=== PATIENT | male | born 1945 | race Caucasian/White ===

== ENCOUNTER 2024-02-27 11:13 | Inpatient (IN) | payer MEDICARE, BC ==
[~2024-02-27] VITALS: Ht 180.3 cm; Wt 99.8 kg
[2024-02-27] MEDS ORDERED: Albuterol 2.5 MG/3 ML VIAL INH SCH ×2 (11:40→14:25)
[2024-02-27] MEDS ORDERED: Ipratropium/Albuterol SulF 2.5-0.5MG/3 ML Amp INH ONE (11:40)
[2024-02-27 11:59] LABS: Base Excess Venous 4.1 mmol/L; Bicarbonate Venous 26.7 mmol/L (24.0-30.0); PCO2 Venous 46.5 mmHg (38-42)
[2024-02-27] MEDS ORDERED: TERA5 PO (12:03)
[2024-02-27] MEDS ORDERED: EPITOL200 M2 PO (12:03)
[2024-02-27 12:10] LABS: BASOPHILS ABSOLUTE AUTO 0.01 K/mm3 (0.00-0.23); BASOPHILS PERCENT AUTO 0 % (0-2); EOSINOPHILS PERCENT AUTO 0 % (0-6); Hemoglobin 13.7 g/dL (13.5-17.5); IMMATURE GRAN ABSOLUTE AUTO 0.03 K/mm3 (0.00-0.10); IMMATURE GRAN PERCENT AUTO 0 % (0-1); LYMPHOCYTES ABSOLUTE AUTO 0.88 K/mm3 (0.84-5.20); LYMPHOCYTES PERCENT AUTO 10 % (21-46); MONOCYTES ABSOLUTE AUTO 0.97 K/mm3 (0.16-1.47); MONOCYTES PERCENT AUTO 11 % (4-13); Mean Corpuscular HGB 31.1 pg (26.0-34.0); Mean Corpuscular HGB Conc 34.3 g/dL (31.5-36.5); Mean Corpuscular Volume 91 fL (80-100); NEUTROPHILS ABSOLUTE AUTO 7.32 K/mm3 (1.96-9.15); NEUTROPHILS PERCENT AUTO 80 % (41-73); Platelet Count 115 K/mm3 (150-400); RDW Coefficient Variation 12.6 % (11.7-14.2); RDW Standard Deviation 41.9 fL (35.1-46.3); Red Blood Cell Count 4.41 M/mm3 (4.30-5.90); White Blood Cell Count 9.21 K/mm3 (4.00-11.30)
[2024-02-27 12:34] LABS: Albumin, Blood 3.4 g/dL (3.4-5.0); Albumin/Globulin Ratio 1.1 (0.8-1.8); Bilirubin, Total 0.6 mg/dL (0.1-1.0); Bun/Creatinine Ratio 23.5 (12.0-20.0); Calcium, Blood 8.5 mg/dL (8.5-10.1); Creatinine, Blood 1.19 mg/dL (0.60-1.20); Globulin, Blood 3.1 g/dL (2.2-4.0); Magnesium, Blood 2.4 mg/dL (1.6-2.4); Potassium, Blood 4.4 mmol/L (3.5-5.5); Total Protein, Blood 6.5 g/dL (6.4-8.2)
[2024-02-27] MEDS ORDERED: MethylPREDNISolone Sod Succ 125 MG Vial IV ONE (14:25)
[2024-02-27] MEDS ORDERED: Ondansetron 4 MG TAB PO PRN (14:35)
[2024-02-27] MEDS ORDERED: CefTRIAXone Sodium 2,000 MG in NS 100 ML IV ONE (14:40)
[2024-02-27] MEDS ORDERED: Azithromycin 500 MG in NS 250 ML IV ONE (14:40)
[2024-02-27 14:41] LABS: CORONAVIRUS COVID-19 AG Negative (NEGATIVE); INFLUENZA A AG Positive (NEGATIVE); INFLUENZA B AG Negative (NEGATIVE)
[2024-02-27] MEDS ORDERED: FLU VACC TS2024-25(6MOS UP)/PF 45 MCG/0.5 ML SYRINGE IM SCH (14:45)
[2024-02-27 16:10] LABS: Influenza A/H1 Detected (NOT DETECT)
[2024-02-27 16:11] LABS: Adenovirus Not Detected (NOT DETECT); Bordetella pertussis Not Detected (NOT DETECT); Chlamydophila pneumoniae Not Detected (NOT DETECT); Coronavirus 229E Not Detected (NOT DETECT); Coronavirus HKU1 Not Detected (NOT DETECT); Coronavirus NL63 Not Detected (NOT DETECT); Coronavirus OC43 Not Detected (NOT DETECT); Human Metapneumovirus Not Detected (NOT DETECT); Human Rhinovirus/Enterovirus Not Detected (NOT DETECT); Influenza A/2009-H1 Not Detected (NOT DETECT); Influenza A/H3 Not Detected (NOT DETECT); Influenza B Not Detected (NOT DETECT); Mycoplasma pneumoniae Not Detected (NOT DETECT); Parainfluenza Virus 1 Not Detected (NOT DETECT); Parainfluenza Virus 2 Not Detected (NOT DETECT); Parainfluenza Virus 3 Not Detected (NOT DETECT); Parainfluenza Virus 4 Not Detected (NOT DETECT); Respiratory Syncytial Virus Not Detected (NOT DETECT); SARS-Cov-2 (COVID-19), BioFire Not Detected (NOT DETECT)
[2024-02-27] MEDS ORDERED: NS 1,000 ML IV SCH (17:55)
--- NOTE | 2024-02-27 19:05 | NUR ---
NOTE GOT REPORT ON PATIENT, GAVE REPORT TO NIGHT NURSE. PT TUCKED IN, CALL LIGHT IN REACH.
[2024-02-27 19:14] VITALS: BP 152/53
[2024-02-27] MEDS ORDERED: Oseltamivir Phosphate 75 MG Cap PO SCH (21:00)
[2024-02-27] MEDS ORDERED: Benzonatate 100 MG Cap PO PRN (22:25)
[2024-02-28] MEDS ORDERED: MethylPREDNISolone Sod Succ 40 MG VIAL IV SCH
[2024-02-28 01:50] VITALS: BP 121/61
--- NOTE | 2024-02-28 03:53 | NUR ---
NEW ER ADMIT THIS SHIFT ([id number]), A&OX4, VSS, O2 TITRATED FROM 6L DOWN TO 2L WITH CURRENT O2 SAT=92%, DENIED PAIN, MEDICATED 1X FOR COUGH, INDEP IN ROOM, SLEEPING AT THIS TIME W/CALL LIGHT IN REACH, WILL CONT TO MONITOR UNTIL REPORT GIVEN TO ONCOMING NURSE.
[2024-02-28 06:37] LABS: BASOPHILS ABSOLUTE AUTO 0.01 K/mm3 (0.00-0.23); BASOPHILS PERCENT AUTO 0 % (0-2); EOSINOPHILS PERCENT AUTO 0 % (0-6); Hematocrit 37.8 % (37.0-53.0); Hemoglobin 12.7 g/dL (13.5-17.5); IMMATURE GRAN ABSOLUTE AUTO 0.03 K/mm3 (0.00-0.10); IMMATURE GRAN PERCENT AUTO 0 % (0-1); LYMPHOCYTES ABSOLUTE AUTO 0.66 K/mm3 (0.84-5.20); LYMPHOCYTES PERCENT AUTO 8 % (21-46); MONOCYTES ABSOLUTE AUTO 0.59 K/mm3 (0.16-1.47); MONOCYTES PERCENT AUTO 7 % (4-13); Mean Corpuscular HGB 30.8 pg (26.0-34.0); Mean Corpuscular HGB Conc 33.6 g/dL (31.5-36.5); Mean Corpuscular Volume 92 fL (80-100); Mean Platelet Volume 10.6 fL (9.1-12.4); NEUTROPHILS ABSOLUTE AUTO 7.44 K/mm3 (1.96-9.15); NEUTROPHILS PERCENT AUTO 85 % (41-73); Platelet Count 109 K/mm3 (150-400); RDW Coefficient Variation 12.6 % (11.7-14.2); RDW Standard Deviation 42.5 fL (35.1-46.3); Red Blood Cell Count 4.12 M/mm3 (4.30-5.90); White Blood Cell Count 8.73 K/mm3 (4.00-11.30)
[2024-02-28 07:11] LABS: Albumin, Blood 2.8 g/dL (3.4-5.0); Albumin/Globulin Ratio 0.9 (0.8-1.8); Bilirubin, Total 0.3 mg/dL (0.1-1.0); Bun/Creatinine Ratio 24.6 (12.0-20.0); Calcium, Blood 8.5 mg/dL (8.5-10.1); Creatinine, Blood 0.97 mg/dL (0.60-1.20); Globulin, Blood 3.1 g/dL (2.2-4.0); Magnesium, Blood 2.4 mg/dL (1.6-2.4); Potassium, Blood 4.8 mmol/L (3.5-5.5); Total Protein, Blood 5.9 g/dL (6.4-8.2)
[2024-02-28 07:44] VITALS: BP 119/59
[2024-02-28] MEDS ORDERED: Enoxaparin 40 MG/0.4 ML SYR SC SCH (09:00)
[2024-02-28] MEDS ORDERED: PRED20 PO (13:35)
[2024-02-28] MEDS ORDERED: OSEL75CA PO (13:36)
[2024-02-28] MEDS ORDERED: BENZ100A PO (13:37)
[2024-02-28 14:49] VITALS: BP 143/65
--- NOTE | 2024-02-28 18:03 | NUR ---
DISCHARGE PT DISCHARGED HOME WITH . FIRST PORTABLE O2 TANK REGULATOR WAS LEAKING, SARA CONTACTED AND REPLACED REGULATOR PRIOR TO DISCHARGE. ALL BELONGINGS SENT WITH PT AND SPOUSE, VSS, 3L O2 NC. EDUCATION PROVIDED.
== END 2024-02-28 17:57 | disposition home or self-care (01) | DRG 871 ==
LOC: ER 11:13 → MEDS 14:35 → ERHOLD 14:35 → MEDS 18:50
PROVIDERS: Student in an Organized Health Care Education/Training Program; ADMIT Internal Medicine
DX: A41.89 Other specified sepsis (principal); J96.01 Acute respiratory failure with hypoxia; J96.02 Acute respiratory failure with hypercapnia; J44.1 Chronic obstructive pulmonary disease with (acute) exacerbation; J44.0 Chronic obstructive pulmonary disease with (acute) lower respiratory infection; J10.1 Influenza due to other identified influenza virus with other respiratory manifestations; N40.0 Benign prostatic hyperplasia without lower urinary tract symptoms; D69.6 Thrombocytopenia, unspecified; D64.9 Anemia, unspecified; Z79.899 Other long term (current) drug therapy
CPT/HCPCS: 0202U; 36415; 71046; 80053; 82803; 83605; 83735; 84145; 85025; 87070; 87205; 87428-QW; 93005; 93010; 94644; 94664; 94761; 99285-25; A9270; J0456; J0696; J1650; J2919; J7030; J7050